=== PATIENT | female | born 1990 | race Caucasian/White ===

== ENCOUNTER 2018-07-30 09:00 | Inpatient (IN) | payer OTHER ==
[2018-08-01] MEDS ORDERED: CITRIC ACID/SODIUM CITRATE 30 ML UNIT-DOSE CUP PO ONE ×2 (12:15→14:56)
[2018-08-01] MEDS ORDERED: ELECTROLYTE-148 SOLN 500 ML IV ONE (12:15)
[2018-08-01] MEDS ORDERED: ELECTROLYTE-148 SOLN 1,000 ML IV SCH ×2 (12:45→13:45)
[2018-08-01 13:14] VITALS: BMI 28.8
[2018-08-01] MEDS ORDERED: OXYTOCIN 20 UNITS in 0.9% NS 40 UNIT/2,000 ML INFUS.BAG IV ONE (13:30)
[2018-08-01] MEDS ORDERED: morphine SULFATE/Preservative Free 0.5 MG/ML (1cc Syringe) ONE (13:32)
[2018-08-01] MEDS ORDERED: ePHEDrine SULFATE 50 MG/1 ML AMPULE ONE (13:32)
[2018-08-01] MEDS ORDERED: ceFAZolin SODIUM 1 GM VIAL ONE (13:32)
[2018-08-01] MEDS ORDERED: DEXAMETHASONE SOD PHOSPHATE 4 MG/1 ML VIAL ONE (13:32)
--- NOTE | 2018-08-01 13:47 | HP ---
Past Medical History - Primary Care Physician PCP:: Paulino Martinez - Admission Chief Complaint: 39,4 weeks, previous c/s. for repeat c/s History of Present Illness: 27 yo f g 3 p2002 with 2 previous c/s requesting repeat c/s, risks discussed, ulternatives explained , cx clp, fh cat 1, History Source: Patient Limitations to Obtaining History: No Limitations - Past Medical History ...: 3 ...Para: 2 ...Term: 2 ...: 0 ...Spon : 0 ...Induced : 0 ...Multiple Gestation: 0 ...LMP: 10/12/17 ... Weeks Gestation by Dates: 41.5 ...EDC by Dates: 07/20/18 ...EDC by Sono: 08/04/18 Heme/Onc: Yes: Anemia - Past Surgical History Past Surgical History: Yes: (03/2011) Hx Myomectomy: No Hx Transabdominal Cerclage: No - Smoking History Smoking history: Never smoked Have you smoked in the past 12 months: No - Alcohol/Substance Use Hx Alcohol Use: No History of Substance Use: reports: None - Social History Usual Living Arrangement: Yes: With Spouse History of Recent Travel: No Home Medications - Allergies Allergies/Adverse Reactions: Allergies Allergy/AdvReac Type Severity Reaction Status Date / Time No Known Allergies Allergy Verified 08/01/18 13:04 - Home Medications Home Medications: Ambulatory Orders Ferrous Sulfate [Feosol] 325 mg PO BID ud 06/14/16 Vit/Iron Fum/Folic AC [ Tablet] 1 each PO DAILY 06/14/16 Review of Systems - Review of Systems Constitutional: reports: No Symptoms Eyes: reports: No Symptoms HENT: reports: No Symptoms Neck: reports: No Symptoms Cardiovascular: reports: No Symptoms Respiratory: reports: No Symptoms Gastrointestinal: reports: No Symptoms Genitourinary: reports: No Symptoms Musculoskeletal: reports: No Symptoms Integumentary: reports: No Symptoms Neurological: reports: No Symptoms Endocrine: reports: No Symptoms Hematology/Lymphatic: reports: No Symptoms Psychiatric: reports: No Symptoms Physical Exam - Maternity Vital Signs: Vital Signs Temperature 97.6 F 08/01/18 12:30 Pulse Rate 75 08/01/18 12:30 Respiratory Rate 20 08/01/18 12:30 Blood Pressure 105/71 08/01/18 12:30 O2 Sat by Pulse Oximetry (%) Constitutional: Yes: Well Nourished, No Distress, Calm Eyes: Yes: WNL, Conjunctiva Clear, EOM Intact HENT: Yes: WNL, Atraumatic, Normocephalic Neck: Yes: WNL, Supple, Trachea Midline Cardiovascular: Yes: WNL, Regular Rate and Rhythm Breast(s): Yes: WNL - Abdominal Exam/OB Fundal Height: 40 Number of Fetuses: Single Presentation: Vertex Contractions: No Intensity: Unaware Monitor Mode: External Heart Rate Location: [facility] Category: I Accelerations: Uniform Decelerations: None - Vaginal Exam/OB Vaginal Bleediing: No Speculum Exam: Yes Dilatation (cm): closed Effacement (%): 0 Amniotic Membrane Status: Intact Presentation: Vertex/Position Station: -3 - Physical Exam Musculoskeletal: Yes: WNL Extremities: Yes: WNL Edema: Yes Edema: LLE: Trace, RLE: Trace Deep Tendon Reflex Grade: Normal +2 ...Motor Strength: WNL Psychiatric: Yes: WNL Hemorrhage Risk Assessment - Risk Factors Medium Risk Factors: Yes: Prior , uterine surgery,or multiple laparotomies Risk Score: 1 Risk Level: Medium Risk Problem List - Problems (1) with 39 completed weeks gestation Code(s): Z3A.39 - 39 WEEKS GESTATION OF (2) Previous section Code(s): Z98.891 - HISTORY OF UTERINE SCAR FROM PREVIOUS SURGERY Assessment/Plan plan repeat c/s, rba discussed
[2018-08-01] MEDS ORDERED: IBUPROFEN 800 MG/8 ML IJ IVPB PRN ×2 (14:27→14:43)
[2018-08-01] MEDS ORDERED: BENZOCAINE 28 GM HEMORRHOIDAL OINTMENT PR PRN (14:27)
[2018-08-01] MEDS ORDERED: WITCH HAZEL 50% (TUCKS) 40 PAD/JAR PAD TP PRN (14:27)
[2018-08-01] MEDS ORDERED: METHYLERGONOVINE MALEATE 0.2 MG/1 ML AMP IM PRN (14:27)
[2018-08-01] MEDS ORDERED: BENZOCAINE 20% 57 GM BOTTLE TP PRN (14:27)
[2018-08-01] MEDS ORDERED: oxyCODONE HCL 5 MG TABLET PO PRN ×2 (14:27)
[2018-08-01] MEDS ORDERED: diphenhydrAMINE HCL 25 MG CAPSULE (FP) PO PRN (14:27)
[2018-08-01] MEDS ORDERED: OXYTOCIN 20 UNITS in 0.9% NS 20 UNIT/1,000 ML INFUS.BAG IV SCH (14:30)
[2018-08-01] MEDS ORDERED: ONDANSETRON 4 MG/2 ML VIAL IVPUSH PRN (14:40)
[2018-08-01] MEDS ORDERED: ACETAMINOPHEN 1000 MG/100 ML VIAL (NON FORMULARY) IVPB ONE (14:43)
[2018-08-01] MEDS: CEFAZOLIN 1 GM in DEXTROSE 5%-WATER 100 ML IVPB SCH (17:54)
--- NOTE | 2018-08-01 23:06 | OP ---
DATE OF OPERATION: 08/01/2018 PREOPERATIVE DIAGNOSIS: 39 weeks, 2 previous sections, request of repeat section. POSTOPERATIVE DIAGNOSIS: 39 weeks, 2 previous sections, request of repeat section. PROCEDURE: Repeat low segment transverse section. SURGEON: Silvia Martinez M.D. LEARNING AND DEVELOPMENT DIRECTOR: Disha Quiroga ANESTHESIA: Spinal. ANESTHESIOLOGIST: Gisela Walker MD ESTIMATED BLOOD LOSS: 500 mL. OPERATION: Patient was taken to operating room with adequate epidural anesthesia. Abdomen and perineum were prepped and draped. Pfannenstiel abdominal skin incision was made. Abdominal wall was cut layer by layer until the peritoneum was exposed and incised. Upon entering the abdominal cavity, the lower uterine segment was identified, and uterovesical fold of the peritoneum was established. The bladder was pushed down. Then a low transverse incision was made. The incision extended laterally. Amniotic sac was entered. Clear fluid. Head delivered. Nasopharynx was suctioned. A live baby girl was delivered without any difficulty, Apgars 9 and 9. Placenta was delivered manually. Uterine cavity was cleaned of all remaining tissue. Uterine incision was closed in 2 layers, the 1st layer with 0 Biosyn continuous suture, the 2nd layer with 0 Biosyn imbricating the 1st layer. Bladder flap was closed with 0 Biosyn continuous suture. Both tubes and ovaries were checked and were normal. No active bleeding was seen. All the lap, sponge, and instrument counts were correct. Peritoneum was closed with 0 Biosyn continuous suture. Muscles were brought together interrupted suture with 0 Biosyn. Fascia was closed with 0 Biosyn continuous sutures. Subcutaneous fat with interrupted sutures 0 Biosyn, and the skin was closed with zachary. The patient tolerated the procedure well and left the OR in good condition. SILVIA MARTINEZ M.D. [id number]
[2018-08-02] MEDS: CEFAZOLIN 1 GM in DEXTROSE 5%-WATER 100 ML IVPB SCH (02:35)
--- NOTE | 2018-08-02 07:35 | PN ---
Progress Note (short form) - Note Progress Note: pod 1 , s/p repeat c/s , doing well, no c/o. no excess vaginal bleeding Last Vital Signs Temp Pulse Resp BP Pulse Ox 98.4 F 77 18 97/66 97 08/02/18 06:00 08/02/18 06:00 08/02/18 06:00 08/02/18 06:00 08/01/18 21:38 abdomen soft, no distension, no cva , incison dry, clean no calf tenderness qiu clear urine, adequate plan ambulate, cbc, advance diet. Problem List - Problems (1) with 39 completed weeks gestation Code(s): Z3A.39 - 39 WEEKS GESTATION OF (2) Previous section Code(s): Z98.891 - HISTORY OF UTERINE SCAR FROM PREVIOUS SURGERY
[2018-08-02] MEDS: SIMETHICONE 80 MG TAB.CHEW (FP) PO PRN ×2 (08:30→21:33)
[2018-08-02 08:32] LABS: BASO % 0.3 % (0-2.0); HEMATOCRIT 31.6 % (32.4-45.2); HEMOGLOBIN 10.6 GM/dL (10.7-15.3); LYMPH % 12.9 % (8-40); MCH 29.7 pg (25.7-33.7); MCHC 33.4 g/dl (32.0-36.0); MEAN CELL VOLUME 88.7 fl (80-96); MEAN PLT VOLUME 8.3 fl (7.5-11.1); MONO % 7.9 % (3.8-10.2); NEUT % 78.9 % (42.8-82.8); PLATELET COUNT 154 K/MM3 (134-434); RBC 3.56 M/mm3 (3.60-5.2); RDW 19.5 % (11.6-15.6); WHITE BLOOD COUNT 10.4 K/mm3 (4.0-10.0)
[2018-08-02] MEDS: ENOXAPARIN NA (PORCINE) 40 MG/0.4 ML DISP.SYRIN SQ SCH (10:38)
[2018-08-02] MEDS ORDERED: BISACODYL 10 MG SUPP.RECT RC PRN (14:27)
[2018-08-02] MEDS: DEXTROSE 5%-LACTATED RINGERS 1,000 ML IV SCH (15:45)
[2018-08-02] MEDS: IBUPROFEN 600 MG TABLET (FP) PO PRN (21:34)
[2018-08-03] MEDS: ENOXAPARIN NA (PORCINE) 40 MG/0.4 ML DISP.SYRIN SQ SCH (10:08)
[2018-08-03] MEDS: ACETAMINOPHEN 325 MG TABLET (FP) PO PRN (12:50)
[2018-08-03] MEDS: IBUPROFEN 600 MG TABLET (FP) PO PRN (12:51)
[2018-08-03] MEDS: SIMETHICONE 80 MG TAB.CHEW (FP) PO PRN (12:51)
--- NOTE | 2018-08-03 16:30 | PN ---
Progress Note (short form) - Note Progress Note: pod2 doing well, no c/o voids ok, passing gas CBC, BMP 08/02/18 08:00 Last Vital Signs Temp Pulse Resp BP Pulse Ox 98.8 F 84 20 103/75 97 08/03/18 09:00 08/03/18 09:00 08/03/18 09:00 08/03/18 09:00 08/01/18 21:38 abdomen soft , no distension ,no cva incision dry, clean no calf tenderness plan ambulate , cbc in am Problem List - Problems (1) with 39 completed weeks gestation Code(s): Z3A.39 - 39 WEEKS GESTATION OF (2) Previous section Code(s): Z98.891 - HISTORY OF UTERINE SCAR FROM PREVIOUS SURGERY
[2018-08-03] MEDS ORDERED: SENNOSIDES/DOCUSATE COMBO (SENNA PLUS) TABLET (UD) PO PRN (22:00)
[2018-08-04 07:54] LABS: BASO % 0.3 % (0-2.0); EOS % 0.7 % (0-4.5); HEMATOCRIT 33.4 % (32.4-45.2); HEMOGLOBIN 11.1 GM/dL (10.7-15.3); LYMPH % 17.5 % (8-40); MCH 29.6 pg (25.7-33.7); MCHC 33.1 g/dl (32.0-36.0); MEAN CELL VOLUME 89.4 fl (80-96); MEAN PLT VOLUME 8.6 fl (7.5-11.1); MONO % 5.2 % (3.8-10.2); NEUT % 76.3 % (42.8-82.8); PLATELET COUNT 157 K/MM3 (134-434); RBC 3.73 M/mm3 (3.60-5.2); RDW 19.4 % (11.6-15.6); WHITE BLOOD COUNT 7.1 K/mm3 (4.0-10.0)
[2018-08-04] MEDS: ENOXAPARIN NA (PORCINE) 40 MG/0.4 ML DISP.SYRIN SQ SCH (09:41)
--- NOTE | 2018-08-04 09:42 | DS ---
Physical Exam-COMMERCIAL ESTIMATOR Vital Signs: Vital Signs Temperature 98.3 F 08/03/18 22:00 Pulse Rate 75 08/03/18 22:00 Respiratory Rate 18 08/03/18 22:00 Blood Pressure 104/75 08/03/18 22:00 O2 Sat by Pulse Oximetry (%) 97 08/01/18 21:38 Constitutional: Yes: Well Nourished, No Distress, Calm Eyes: Yes: WNL, Conjunctiva Clear, EOM Intact HENT: Yes: WNL, Atraumatic, Normocephalic Neck: Yes: WNL, Supple, Trachea Midline Cardiovascular: Yes: WNL, Regular Rate and Rhythm Respiratory: Yes: WNL, Regular, CTA Bilaterally Gastrointestinal: Yes: WNL ...Rectal Exam: Yes: WNL Renal/: Yes: WNL ....Post : Yes: Uterus firm, Uterus non-tender, Slight lochia rubra Breast(s): Yes: WNL Musculoskeletal: Yes: WNL Extremities: Yes: WNL Integumentary: Yes: WNL Wound/Incision: Yes: Clean/Dry, Well Approximated, [place] Intact Neurological: Yes: WNL, Alert, Oriented ...Motor Strength: WNL Psychiatric: Yes: WNL, Alert, Oriented Labs: CBC, BMP 08/04/18 06:30 Delivery - Delivery Section: Repeat (no complication), Low Flap Transverse (no complication ) Type of Anesthesia: Spinal Episiotomy/Laceration: None EBL (cc): 500 Delivery, Single - Stages of Labor Date of Delivery: 08/01/18 Time of Delivery: 13:58 Time Placenta Delivered: 13:59 Placenta: Yes: Expressed - Condition of Client Care Manager/Director Of Psychiatry Present: Yes Name: Jocelyn Garcia Gender: Female Weight: 8 lb 1 oz Position: Right, OT Total Hours ROM (Hrs/Mins): 0hrs 2min - 1 Minute Total Score: 9 5 Minutes Total Score: 9 - [place] Feeding Plan Initial Plan: Exclusive throughout hospitalization Discharge Summary Reason For Visit: Current Active Problems with 39 completed weeks gestation (Acute) Previous section (Acute) Procedures: Principal: repeat LST c/s Hospital Course: no complication Condition: Good - Instructions Diet, Activity, Other Instructions: regular diet, follow up [facility] care 1 week,if pain, heavy vaginal bleeding, fever call MD Referrals: Paulino Martinez MD [Staff Physician] - Disposition: HOME - Home Medications Comprehensive Discharge Medication List: Ambulatory Orders Ferrous Sulfate [Feosol] 325 mg PO BID ud 06/14/16 Vit/Iron Fum/Folic AC [ Tablet] 1 each PO DAILY 06/14/16 Ibuprofen [Motrin -] 600 mg PO TID #90 tablet 08/02/18
[2018-08-04] MEDS: SIMETHICONE 80 MG TAB.CHEW (FP) PO PRN (09:46)
[2018-08-04] MEDS: IBUPROFEN 600 MG TABLET (FP) PO PRN (09:47)
[2018-08-04] MEDS: ACETAMINOPHEN 325 MG TABLET (FP) PO PRN (09:48)
[2018-08-04 10:15] VITALS: BP 122/67; PULSE 70; TEMP 97.5
[2018-08-04] MEDS ORDERED: DIPHTH,PERTUSS(ACELL),TET 0.5 ML DISP.SYRIN IM ONE (11:00)
[2018-08-04] MEDS: DEXTROSE 5%-LACTATED RINGERS 1,000 ML IV SCH (14:20)
--- NOTE | 2018-08-09 16:39 | PATH ---
Surgical Pathology Report Patient Name: SONDRA ENRIQUE Med. Rec. #: [id number] /Age/Gender: 1990 (Age: 27) / F Account: [id number] Location: [facility] OBS/[facility] Taken: 08/01/2018 Received: 08/02/2018 Reported: 08/09/2018 Physicians: Paulino Martinez M.D. Specimen(s) Received PLACENTA Clinical History Final Diagnosis PLACENTA: THIRD TRIMESTER PLACENTA. TRIVASCULAR CORD. MEMBRANES WITH NO DIAGNOSTIC ABNORMALITIES. Electronically Signed Vitaliy Bates M.D. Gross Description The specimen is received fresh labeled placenta and is a 644 gram, 19.0 x 15.5 x 3.0 cm. placenta with attached membranes and umbilical cord. The attached membranes are urbina, translucent with focal opacities and insert marginally. The umbilical cord measures 41 cm. in length and averages 1.2 cm. in diameter. The cord inserts eccentrically, 5.5 cm. to the nearest margin. No true knots or strictures are identified. Cut surface of the umbilical cord reveals 3 vessels. The surface is estrada-blue with minimal fibrin deposition and appropriate caliber vessels. The maternal surface is red-brown with focal defects. Sectioning reveals red-brown, spongy parenchyma. No lesions are identified. Coffee Shop A[employer] sections are submitted in three cassettes as follows: 1- membrane rolls and umbilical cord; 2-3- full thickness sections of placenta. _ DL/08/08/2018 saudi/08/08/2018
== END 2018-08-04 14:30 | disposition home or self-care (01) | DRG 540 ==
LOC: JLDR 08-01 12:15 → J3W 08-01 16:00
PROVIDERS: ADMIT Obstetrics & Gynecology; ATTEND Obstetrics & Gynecology
PROC: 10D00Z1 Extraction of Products of Conception, Low, Open Approach (ICD-10-PCS; principal; 2018-08-01)
DX: O34.211 Maternal care for low transverse scar from previous cesarean delivery (principal); Z3A.39 39 weeks gestation of pregnancy; Z37.0 Single live birth
CPT/HCPCS: 36415; 85025; 88307-TC; 90686; 90715; G0008

== ENCOUNTER 2019-03-26 10:53 | Emergency (ER) | payer SELFPAY, OTHER | END 2019-03-26 11:28 | disposition home or self-care (01) | LOC: JERFT 10:53 ==